=== PATIENT | female | born 1970 | race Caucasian/White ===

== ENCOUNTER 2025-02-06 22:04 | Emergency (ER) | payer OTHER ==
[~2025-02-06] VITALS: Ht 149.9 cm; Wt 68.2 kg
[2025-02-06 22:08] VITALS: TEMP 98.8
[2025-02-06 22:39] LABS: PLATELET COUNT (AUTO) 196 K/uL (150-450); RED BLOOD CELL COUNT(AUTO) 4.82 MIL/uL (4.00-5.20); RED CELL DISTRIBUTION WIDTH 12.7 % (11.5-14.5); WHITE BLOOD COUNT (AUTO) 9.2 K/uL (4.5-11.0)
[2025-02-06 22:45] LABS: CALCIUM, TOTAL 9.2 mg/dL (8.8-10.5); CREATININE 0.85 mg/dL (0.60-1.30); GLOMERULAR FILTR. RATE CALC > 60 mL/min (>60); GLUCOSE,RANDOM 358 mg/dL (70-110); SODIUM SERUM 137 mmol/L (136-145); UREA NITROGEN, BLOOD 19 mg/dL (7-18)
[2025-02-06 22:51] LABS: ASPARTATE AMINOTRANSFERASE 86.0 U/L (15-37); TOTAL PROTEIN, SERUM 7.7 g/dL (6.4-8.2)
[2025-02-06 22:56] LABS: TROPONIN I-HIGH SENSITIVITY 9 ng/L (<51)
[2025-02-06 23:00] VITALS: BP 145/76; PULSE 69; RESP 17; O2SAT 98
[2025-02-06] MEDS: METOCLOPRAMIDE HCL 10 MG TABLET PO ONE (23:39)
[2025-02-06] MEDS: IBUPROFEN 400 MG TABLET PO ONE (23:40)
[2025-02-06] MEDS: ACETAMINOPHEN 500 MG TABLET PO ONE (23:40)
== END 2025-02-07 00:23 | disposition home or self-care (01) ==
LOC: EMS 22:04
DX: R42 Dizziness and giddiness (principal); R55 Syncope and collapse; R11.0 Nausea; R23.2 Flushing; R41.0 Disorientation, unspecified; I10 Essential (primary) hypertension; R06.02 Shortness of breath
CPT/HCPCS: 71045; 80048; 80076; 82962; 83880; 84484; 85025; 93005; 99285; 36415-L1; 36415-TC